=== PATIENT | female | born 1955 | race Caucasian/White ===

== ENCOUNTER → 2017-04-15 | Outpatient (CLI) | payer OTHER ==
[~2017-04-15] MED LIST: ALEV220T14 PO; BEDSIDE COMMODE1 MI1; CHOL1CAP34 PO; CPMMACHINE; FERR240T PO; FLUTI44I INH; LISI-515 PO; MECL-62 PO; MONT10TA2 PO; WALKER WHEELS/F1 MIS
== END ==
LOC: CPRE 09:11
PROVIDERS: ATTEND Orthopaedic Surgery Orthopaedic Surgery of the Spine
DX: Z01.812 Encounter for preprocedural laboratory examination (principal); M17.10 Unilateral primary osteoarthritis, unspecified knee

== ENCOUNTER 2017-04-22 12:10 | Day surgery (SDC) | payer OTHER ==
[~2017-04-22] VITALS: Ht 167.6 cm; Wt 132.8 kg
[~2017-04-22 12:10] MED LIST changes: -BEDSIDE COMMODE1 MI1; -CPMMACHINE; -MECL-62 PO; -WALKER WHEELS/F1 MIS
[2017-04-22] MEDS ORDERED: LACTATED RINGER'S 1000 ML IV PRN (12:30)
[2017-04-22] MEDS ORDERED: INSULIN HUMAN REGULAR 1,000 UNITS/10 ML VIAL SQ PRN (12:30)
[2017-04-22] MEDS ORDERED: VANCOMYCIN 1000 MG/NS 250 ML (for <70 kg) IV SCH ×2 (12:30)
[2017-04-22] MEDS ORDERED: SODIUM CHLORID 0.9% 500 ML IV PRN (12:30)
[2017-04-22] MEDS ORDERED: CHLORHEXIDINE GLUCONATE 4% SOLN 120 ML BTL TOPICAL SCH (12:30)
[2017-04-22] MEDS ORDERED: METOPROLOL TARTRATE 25 MG TAB PO PRN (12:30)
[2017-04-22] MEDS ORDERED: CHLORHEXIDINE GLUCONATE 2 % 1 PACK (2 CLOTHS) TOPICAL PRN (12:30)
[2017-04-22] MEDS ORDERED: POVIDONE IODINE 5% (ANTISEPSIS KIT) 4 APPLICATIONS EACH NARE PRN (12:30)
[2017-04-22] MEDS ORDERED: ROPIVACAINE PERI-ARTICULAR INJECTION. P-ARTICULR SCH ×5 (13:00)
[2017-04-22] MEDS ORDERED: GENTAMICIN SULFATE 80 MG/2 ML VIAL ONE ×2 (13:01)
[2017-04-22 13:14] VITALS: BP 121/79; PULSE 82; RESP 14; TEMP 97; O2SAT 94
== END 2017-04-22 13:50 | disposition home or self-care (01) ==
LOC: HSDC 12:10 → HSDI 12:10 → UNDOADMIN 12:10 → UNDODISIN 13:50 → HSDC 13:50 → EDSTATUS 14:30
PROVIDERS: ATTEND Orthopaedic Surgery Orthopaedic Surgery of the Spine
DX: Z53.09 Procedure and treatment not carried out because of other contraindication (principal)
CPT/HCPCS: 99211; G0463; J1580

== ENCOUNTER 2017-04-24 15:22 | Inpatient (IN) | payer OTHER ==
[~2017-04-24] VITALS: Ht 167.6 cm; Wt 136.0 kg
[2017-05-13] MEDS ORDERED: DEXAMETHASONE SOD PHOS PF 10 MG/ML VIAL IV ONE (08:33)
[2017-05-13] MEDS ORDERED: BUPIVACAINE HCL PF 0.5% 30 ML VIAL NERV BLOCK ONE (08:33)
[2017-05-13] MEDS ORDERED: NEOSTIGMINE 3 MG/3 ML SYR IV ONE (09:22)
[2017-05-13] MEDS ORDERED: PROPOFOL 200 MG/20 ML AMP IV ONE (09:22)
[2017-05-13] MEDS ORDERED: LACTATED RINGER'S 1000 ML INJ 1,000 ML IV ONE (09:22)
[2017-05-13] MEDS ORDERED: ONDANSETRON HCL 4 MG/2 ML VIAL IV PUSH ONE (09:22)
[2017-05-13] MEDS ORDERED: SODIUM CHLOR 0.9% 250 ML INJ 250 ML ONE (11:52)
[2017-05-13] MEDS ORDERED: VANCOMYCIN HCL 1000 MG VIAL ONE (11:53)
[2017-05-13] MEDS ORDERED: ACETAMINOPHEN 1000 MG/100 ML 100 ML IV ONE (13:23)
[2017-05-13] MEDS ORDERED: MIDAZOLAM HCL 2 MG/2 ML VIAL ONE (13:24)
[2017-05-13] MEDS ORDERED: FAMOTIDINE 20 MG/2 ML VIAL ONE (13:24)
[2017-05-13] MEDS ORDERED: ceFAZolin 2 GM PREMIX 50 ML ONE (13:30)
[2017-05-13] MEDS ORDERED: ROPIVACAINE PERI-ARTICULAR INJECTION. P-ARTICULR SCH ×5 (13:30)
[2017-05-13] MEDS ORDERED: INSULIN HUMAN REGULAR 1,000 UNITS/10 ML VIAL SQ PRN (13:45)
[2017-05-13] MEDS ORDERED: VANCOMYCIN 1000 MG/NS 250 ML (for <70 kg) IV SCH ×2 (13:45)
[2017-05-13] MEDS ORDERED: POVIDONE IODINE 5% (ANTISEPSIS KIT) 4 APPLICATIONS EACH NARE PRN (13:45)
[2017-05-13] MEDS ORDERED: LACTATED RINGER'S 1000 ML IV PRN (13:45)
[2017-05-13] MEDS ORDERED: SODIUM CHLORID 0.9% 500 ML IV PRN (13:45)
[2017-05-13] MEDS ORDERED: CHLORHEXIDINE GLUCONATE 4% SOLN 120 ML BTL TOPICAL SCH (13:45)
[2017-05-13] MEDS ORDERED: CHLORHEXIDINE GLUCONATE 2 % 1 PACK (2 CLOTHS) TOPICAL PRN (13:45)
[2017-05-13] MEDS ORDERED: METOPROLOL TARTRATE 25 MG TAB PO PRN (13:45)
[2017-05-13] MEDS ORDERED: GENTAMICIN SULFATE 80 MG/2 ML VIAL IRRIGATION ONE ×2 (15:34→15:43)
[2017-05-13] MEDS ORDERED: CPMMACHINE (16:44)
[2017-05-13] MEDS ORDERED: BEDSIDE COMMODE1 MI1 (16:44)
[2017-05-13] MEDS ORDERED: WALKER WHEELS/F1 MIS (16:44)
[2017-05-13] MEDS ORDERED: FLUTICASONE PROPIONATE 44 MCG/ACT 10.6 GM INHALER INH PRN (16:45)
[2017-05-13] MEDS ORDERED: ALUMINUM/MAGNESIUM/SIMETH 30 ML CUP PO PRN (16:45)
[2017-05-13] MEDS ORDERED: Post-op Orders (for Pharmacy) MISC XX ONE (16:45)
[2017-05-13] MEDS ORDERED: SODIUM CHLORIDE 0.9% FLUSH 5 ML FLUSH IVF PRN (16:45)
[2017-05-13] MEDS ORDERED: MORPHINE SULFATE 8 MG/ML INJ IM PRN (16:45)
[2017-05-13] MEDS ORDERED: ZOLPIDEM TARTRATE 5 MG TAB PO PRN (16:45)
--- NOTE | 2017-05-13 16:46 | HHI.FF ---
Face to Face Verification Diagnosis: (1) Osteoarthritis of right knee Physical Therapy Gait training, Transfer training, bed to chair Knee: Total knee, Protocol: Right, Full weight bearing Canvas Knee Splint: Remove only with PT, Other (at night while sleeping x 4 weeks ) Right LE Weight Bearing: WB as tolerated Left LE Weight Bearing: WB as tolerated Nursing RN: 3 days/week x 2 weeks Nursing: Dressing changes (clean incision with alcohol and apply dry sterile dressing ) Additional Instructions Pt/INR q Saturday and , call/text results to Jennifer [phone] Goal INR 1.5-1.8 I have seen patient Bel Morales on 05/13/17. My clinical findings support the need for the requested home health care services because: Deconditioned w/ increased weakness I certify that my clinical findings support that this patient is homebound because: Post-op weakness Jan Sloan MD May 13, 2017 16:46
[2017-05-13] MEDS ORDERED: DO NOT ADM ANY ANTICOAGULANT DRUGS PRN (16:54)
[2017-05-13] MEDS ORDERED: MORPHINE SULFATE 4 MG/ML INJ ONE (17:00)
[2017-05-13] MEDS ORDERED: *morphine SULFATE 8 MG/ML PERIprocedure ONLY ONE ×2 (17:07→17:30)
--- NOTE | 2017-05-13 17:51 | RADRPT ---
EXAM DATE/TIME: 05/13/2017 17:08 [facility] COMPARISON: No previous studies available for comparison. INDICATIONS : Post operative right knee. MEDICAL HISTORY : None. SURGICAL HISTORY : None. ENCOUNTER: Initial ACUITY: 1 day PAIN SCORE: Non-responsive. LOCATION: Right knee. FINDINGS: AP and lateral views of the knee following arthroplasty reveals a prosthesis in anatomic alignment. F racture is not appreciated. Surgical drain is evident CONCLUSION: Status post total knee arthroplasty. Tamir Menendez MD FACR Board Certified Radiologist. This report was verified electronically.
[2017-05-13] MEDS: LACTATED RINGER'S 1000 ML INJ 1,000 ML IV SCH (18:00)
[2017-05-13] MEDS: ACETAMINOPHEN/HYDROcodone 325 MG/7.5 MG TAB PO PRN (20:18)
[2017-05-13 20:58] VITALS: BP 126/70; PULSE 85; RESP 16; TEMP 96; O2SAT 94
[2017-05-13] MEDS ORDERED: FERROUS GLUCONATE PO SCH ×2 (21:00)
[2017-05-13] MEDS: SODIUM CHLORIDE 0.9% FLUSH 5 ML FLUSH IVF SCH (21:03)
[2017-05-14] VITALS (9 sets, daily range): BP systolic 80–123; BP diastolic 57–73; PULSE 69–85; RESP 16–19; TEMP 96.2–96.8; O2SAT 94–98
[2017-05-14] MEDS: ACETAMINOPHEN/HYDROcodone 325 MG/7.5 MG TAB PO PRN ×5 (00:53→18:07)
[2017-05-14] MEDS: LACTATED RINGER'S 1000 ML INJ 1,000 ML IV SCH (03:58)
[2017-05-14 06:17] LABS: PROTHROMBIN TIME - PATIENT 11.5 SEC (9.8-11.6)
[2017-05-14] MEDS: ONDANSETRON HCL 4 MG/2 ML VIAL IVP PRN (07:23)
[2017-05-14] MEDS: LISINOPRIL 20 MG TAB PO SCH (08:13)
--- NOTE | 2017-05-14 08:59 | PD.CONS ---
HPI Service [facility] Hospitalists Consult Requested By Dr. Jan Sloan Reason for Consult Medical management Primary Care Physician Dr. Han Bryant Diagnoses: History of Present Illness Mrs. Morales is a pleasant 61 y/o female with HTN, asthma, osteoarthritis and vitamin D deficiency. Pt was admitted to [facility] on 05/13/17 for right total knee arthroplasty with Dr. Sloan. The [facility] Hospitalist team was consulted to help with managing the patients chronic medical issues. She is seen post- operatively. Her vitals have been stable. Pts pain is fairly well controlled. Denies any chest pain, SOB, palpitations, abd pain, vomiting, or diarrhea. pt rpeorts that she had some dizziness this morning after taking some pain medication. Otherwise no complaints. Pt is planned for discharge home with [facility] tomorrow. Review of Systems Constitutional: DENIES: Fever, Chills Eyes: DENIES: Vision loss Ears, nose, mouth, throat: DENIES: Hearing loss Respiratory: DENIES: Cough, Shortness of breath Cardiovascular: DENIES: Chest pain, Palpitations Gastrointestinal: DENIES: Abdominal pain, Diarrhea, Vomiting Genitourinary: DENIES: Hematuria Musculoskeletal: COMPLAINS OF: Joint pain Integumentary: DENIES: Rash Neurologic: DENIES: Headache Psychiatric: DENIES: Confusion Past Family Social History Past Medical History HTN Hyperlipidemia Asthma Obesity Recurrent ventral hernia Vertigo Vitamin D Deficiency 2D echo (12/19/16): - Mild concentric left ventricular hypertrophy - Estimated EF 60-65% - RV is mildly dilated - [id number] mitral valve regurgitation - Estimated PA pressure is 19.9mmHg Past Surgical History Ovarian cystectomy Reported Medications Ferrous Gluconate 480 Mg PO HS Flovent Hfa 10.6 GM Inh (Fluticasone Propionate) 44 Mcg/Act Inh 2 Puff INH BID PRN Use daily at the same time. Vitamin D3 50,000 Units PO Q7D Lisinopril 20 Mg PO DAILY --Advair Diskus 250-50Mcg/Dose i Puff Q12H --Albuterol Nebulizer Q6H PRN Allergies: Coded Allergies: penicillin G (Unverified Allergy, Severe, 05/13/17) meloxicam (Verified Allergy, Unknown, 05/13/17) Family History Father with hx of COPD, CHF, Mother with hx of A. 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 She is Physical Exam Vital Signs Vital Signs Date Time Temp Pulse Resp B/P (MAP) Pulse Ox O2 Delivery O2 Flow Rate FiO2 05/14/17 08:00 96.2 80 19 123/73 (90) 95 05/14/17 04:35 96.2 75 19 101/57 (72) 94 05/14/17 00:40 96.4 85 18 112/69 (83) 96 05/13/17 20:58 96.0 85 16 126/70 (88) 94 05/13/17 20:15 97.9 86 15 109/61 (77) 93 Nasal Cannula 3 05/13/17 19:00 81 15 106/59 (75) 95 Nasal Cannula 3 05/13/17 18:30 82 15 106/57 (73) 94 Nasal Cannula 3 05/13/17 18:15 84 15 110/57 (74) 96 Nasal Cannula 3 05/13/17 18:00 86 15 110/58 (75) 96 Nasal Cannula 3 05/13/17 17:45 86 14 107/58 (74) 93 Nasal Cannula 3 05/13/17 17:30 87 15 111/64 (80) 94 Nasal Cannula 3 05/13/17 17:15 85 14 111/62 (78) 94 Nasal Cannula 3 05/13/17 17:00 86 14 117/60 (79) 94 Nasal Cannula 3 05/13/17 16:51 98.2 89 16 116/68 (84) 94 Nasal Cannula 3 05/13/17 12:34 98.5 86 18 126/80 (95) 95 Physical Exam GENERAL: This is a well-nourished, well-developed patient, in no apparent distress. HEENT: Atraumatic. Normocephalic. No temporal or scalp tenderness. No scleral icterus. Airway patent. NECK: Trachea midline, supple, nontender. CARDIO: Regular. RESP: CTA bilaterally. No wheezes, rales, or rhonchi. ABD: +BS, soft, non-tender, nondistended. EXT: Right knee bandages are c/d/i. NEURO: Awake and alert. Motor and sensory grossly within normal limits. Normal speech. Laboratory Laboratory Tests Test 05/14/17 05:46 Prothrombin Time 11.5 Prothromb Time International Ratio 1.0 Imaging Last Impressions Knee X-Ray 05/13/17 1638 Signed Impressions: Service Date/Time: Saturday, May 13, 2017 17:08 - CONCLUSION: Status post total knee arthroplasty. Tamir Menendez MD Assessment and Plan Problem List: (1) Osteoarthritis of right knee ICD Codes: M17.11 - Unilateral primary osteoarthritis, right knee Status: Chronic Plan: - Pt s/p right total knee arthroplasty on 05/13/[address] Jan Sloan - Post-op pain control per Ortho - IS - PT daily - Constipation precautions - Supportive care - DVT prophylaxis with Coumadin ordered by surgery (2) HTN (hypertension), benign ICD Codes: I10 - Essential (primary) hypertension Status: Chronic Plan: - BP has been stable - Home med resumed - Monitor (3) Asthma ICD Codes: J45.909 - Unspecified asthma, uncomplicated Status: Chronic Plan: - Pt takes Advair twice daily, Albuterol nebs PRN - Duoneb PRN Assessment and Plan Patient examined. Assessment and plan formulated with Alyssa Pratt PA-C. I agree with the above. Problem Qualifiers (1) Osteoarthritis of right knee: Qualified Codes: M17.11 - Unilateral primary osteoarthritis, right knee (2) Asthma: Alyssa Pratt May 14, 2017 08:59 Amrit Bullard DO May 16, 2017 01:36
[2017-05-14] MEDS: SODIUM CHLORIDE 0.9% FLUSH 5 ML FLUSH IVF SCH ×2 (09:00→21:00)
[2017-05-14] MEDS ORDERED: RESP: ALBUTEROL 2.5 MG/IPRATROPIUM 0.5 MG NEB (PRN) NEB (09:15)
[2017-05-14] MEDS ORDERED: WARFARIN SOD 10 MG TAB PO ONE (16:00)
[2017-05-14] MEDS ORDERED: WARFARIN SOD 5 MG TAB PO SCH (16:00)
[2017-05-14] MEDS ORDERED: BENZOCAINE-MENTHOL (SUGAR FREE) 15 MG-3.6 MG LOZENGE BUCCAL PRN (16:15)
--- NOTE | 2017-05-14 17:24 | MP ---
cc: BETO JONES MD GILLESPY, ALBERT DATE OF SURGERY 05/13/17 PREOPERATIVE DIAGNOSIS 1. Right knee severe tricompartmental osteoarthritis, genu varus deformity. 2. Morbid obesity. BMI is 46.7. POSTOPERATIVE DIAGNOSIS 1. Right knee severe tricompartmental osteoarthritis, genu varus deformity. 2. Morbid obesity. BMI is 46.7. PROCEDURE Right total knee arthroplasty - cemented Biomet vanguard SURGEON Lois Sloan MD WHEELCHAIR DRIVER Maximilian Brito, MONSTER SPECIMENS None ESTIMATED BLOOD LOSS 50 mL COMPLICATIONS None ANESTHESIA General, regional, local DRAINS Two. TOURNIQUET TIME 59 minutes at 300mmHg condition stable CONDITION Stable. PLAN OF ACTIVITY Per orders. PROCEDURE IN DETAIL My information services assistant Jennifer Brito, PAC, was present for entire surgical case. She was medically necessary for entire case because of the complexity of the case and to facilitate the performance of the procedure. The DATACAP DEVELOPER at the back table was not a skill set for this case to manipulate the instruments e.g. multiple different soft tissue tractors, trial implants and permanent implants including bone cement. The patient was brought to the operating room and had satisfactory anesthesia by Dr. Dr. Rodrick Phelps, Department of Anesthesia. The right lower extremity was prepped and draped in usual sterile manner. A considerable time and effort was made in preparing the patient for surgery and during the surgery because of her morbid obesity and very large thigh from her morbid obesity. A four inch tourniquet needed to be used for the surgical case. The right lower extremity was prepped and draped in usual sterile manner. The extremity was exsanguinated by elevation and the tourniquet was inflated to 300 mmHg. An anterior medial exposure to the knee was made. Paramedian capsulotomy was performed. The patella was dislocated laterally. The patient was found to have severe tricompartmental osteoarthritis. The prepatellar fat pad was excised. The remaining portion of the medial and lateral meniscus were removed. Anterior cruciate ligament was removed. The posterior cruciate ligament was preserved. Using Biomet vanguard total knee arthroplasty system, IM guide was used for the distal femur with a 5 degree valgus cut. This was to accept a 67.5 mm tibial component with appropriate rotation of 3-5 degrees of external rotation. Extramedullary guide was used for the tibia to accept a 71 mm tibial prosthesis. Trial reduction was made with a 10 mm insert. The patient had excellent balance with both flexion/extension. This was after appropriate soft tissue releases were performed. Undersurface of the patella was performed to accept a 31-mm three-pronged patellar prosthesis. All trial components were removed. Preparation for cementing was made. The knee was irrigated with copious amounts of sterile saline. The wound itself was dry. The knee was injected with 100 mL of local anesthesia provided by the department pharmacy. The wound was prepared for cementing. Two packages of Palicos bone cement was used. High viscosity Palicos bone cement was used. First, the tibial component was cemented followed by the femoral component and then the patella component. All excess bone cement was removed. Bone cement was allowed to harden for 13 minutes. A 10 x 71 mm tibial prosthesis was assembled onto the tibial tray. Appropriate locking mechanism was performed. The tourniquet was deflated. All bleeders were coagulated. Wound was irrigated with 4000 mL of sterile saline antibiotic solution. A lateral retinacular release was performed. The patella was found to groove well within patellofemoral compartment using a "no thumbs technique". Two 1/8" Hemovac drains were hooked up to automatic type system. The knee was closed in layers. The capsule and extensor mechanism __ using multiple interrupted #2 Tycron sutures. Subcutaneous layers with 0 Vicryl and 2-0 Vicryl. Skin was approximated with skin trey. Sterile dressings were applied. The patient tolerated the procedure well and went to recovery room in stable and satisfactory condition. MD SARA Daniel/ /4:38 PM /4:57 PM
[2017-05-15] VITALS: BP 109/69; PULSE 72; RESP 17; TEMP 96.7; O2SAT 95
[2017-05-15] MEDS: ACETAMINOPHEN/HYDROcodone 325 MG/7.5 MG TAB PO PRN ×4 (00:19→13:09)
[2017-05-15 04:00] VITALS: BP 100/57; PULSE 80; RESP 17; TEMP 97.3; O2SAT 96
[2017-05-15] MEDS: LACTATED RINGER'S 1000 ML INJ 1,000 ML IV SCH (07:30)
[2017-05-15] MEDS: LISINOPRIL 20 MG TAB PO SCH (07:53)
--- NOTE | 2017-05-15 07:56 | PD.ORT.PN ---
Subjective Subjective Remarks pt doing better, does have post op knee pain denies any SOB, chest pain Objective Vitals Vital Signs Date Time Temp Pulse Resp B/P (MAP) Pulse Ox O2 Delivery O2 Flow Rate FiO2 05/15/17 04:00 97.3 80 17 100/57 (71) 96 05/15/17 00:00 96.7 72 17 109/69 (82) 95 05/14/17 22:42 96 Nasal Cannula 05/14/17 19:00 96.8 69 16 112/64 (80) 95 05/14/17 16:00 96.6 81 18 100/61 (74) 97 05/14/17 12:38 105/71 (82) 05/14/17 12:00 96.8 82 18 80/60 (67) 95 05/14/17 11:16 98 21 05/14/17 08:00 96.2 80 19 123/73 (90) 95 I/O 05/14/17 05/14/17 05/14/17 05/15/17 05/15/17 05/15/17 07:00 15:00 23:00 07:00 15:00 23:00 Intake Total 1077 ml 820 ml 480 ml 480 ml Output Total 700 ml 0 ml Balance 377 ml 820 ml 480 ml 480 ml Intake Oral 480 ml 720 ml 480 ml 480 ml IV Total 597 ml 100 ml Output Urine Total 700 ml Drainage Total 0 ml 0 ml Bladder Scan Volume Amount 498 ml # Voids 3 3 5 # Bowel Movements 0 0 Objective Remarks sitting up in chair right knee dressing dry and intact +NVI no calf tenderness Assessment & Plan Assessment and Plan POD # 2 s/p R TKA low dose coumadin for dvt prop PT-WBAT anticipate discharge today after total joint class orthopedically stable going home with [facility] Jennifer Brito May 15, 2017 07:56
[2017-05-15 08:00] VITALS: BP 121/65; PULSE 84; RESP 17; TEMP 96.5; O2SAT 96
[2017-05-15] MEDS: SODIUM CHLORIDE 0.9% FLUSH 5 ML FLUSH IVF SCH (09:00)
[2017-05-15] MEDS: ONDANSETRON HCL 4 MG/2 ML VIAL IVP PRN (09:33)
[2017-05-15 10:46] LABS: PROTHROMBIN TIME - PATIENT 11.4 SEC (9.8-11.6)
[2017-05-15 10:53] LABS: REVIEW FLAG FINAL
[2017-05-15 12:00] VITALS: BP 114/62; PULSE 72; RESP 18; TEMP 95.9; O2SAT 95
[2017-05-15] MEDS ORDERED: MAGNESIUM HYDROXIDE SUSP 30 ML CUP PO SCH (14:00)
[2017-05-15] MEDS ORDERED: MECL-62 PO (14:22)
[2017-05-15] MEDS ORDERED: MECLIZINE HCL 25 MG TAB PO PRN (14:30)
[2017-05-15] MEDS ORDERED: WARFARIN SOD 5 MG TAB PO SCH (16:00)
[2017-05-15] MEDS ORDERED: WARFARIN SOD 5 MG TAB PO ONE (16:00)
[2017-05-15] MEDS ORDERED: WARFARIN SOD 10 MG TAB PO ONE (16:00)
[2017-05-16] MEDS ORDERED: BISACODYL EC 5 MG TABEC PO SCH (09:00)
[2017-05-16] MEDS ORDERED: WARFARIN SOD 5 MG TAB PO SCH (16:00)
== END 2017-05-15 16:55 | DRG 470 ==
LOC: HSDI 05-13 11:17 → N06B 05-13 20:59
PROVIDERS: ADMIT Orthopaedic Surgery Orthopaedic Surgery of the Spine; ATTEND Orthopaedic Surgery Orthopaedic Surgery of the Spine
PROC: 0SRC0J9 Replacement of Right Knee Joint with Synthetic Substitute, Cemented, Open Approach (ICD-10-PCS; principal; 2017-05-13 14:11)
DX: M17.11 Unilateral primary osteoarthritis, right knee (principal); Z68.42 Body mass index [BMI] 45.0-49.9, adult; I10 Essential (primary) hypertension; E66.01 Morbid (severe) obesity due to excess calories; J45.909 Unspecified asthma, uncomplicated; E55.9 Vitamin D deficiency, unspecified; E78.5 Hyperlipidemia, unspecified; I34.0 Nonrheumatic mitral (valve) insufficiency
CPT/HCPCS: 73560; 76937; 85014; 85018; 85610; 86850; 86890; 86891; 86900; 86901; 86920; 94150; C1776; J0131; J0171; J0690; J0735; J1100; J1580; J1885; J2250; J2270; J2405; J2710; J2795; J3010; J3370; J7050; J7120; L1830

== ENCOUNTER → 2017-07-15 | Day surgery (SDC) | payer OTHER ==
[~2017-07-15] VITALS: Ht 167.6 cm; Wt 132.0 kg
[~2017-07-15] MED LIST changes: +ACETAMINOPHEN/HYDROcodone 325 MG/10 MG TAB PO PRN; -ALEV220T14 PO; +BEDSIDE COMMODE1 MI1; +CHLORHEXIDINE GLUCONATE 2 % 1 PACK (2 CLOTHS) TOPICAL PRN; +CHLORHEXIDINE GLUCONATE 4% SOLN 120 ML BTL TOPICAL SCH; +CPMMACHINE; +DEXAMETHASONE SOD PHOS PF 10 MG/ML VIAL ONE; +DO NOT ADM ANY ANTICOAGULANT DRUGS PRN; +HYDR-3535 PO; +INSULIN HUMAN REGULAR 1,000 UNITS/10 ML VIAL SQ PRN; +KETAMINE HCL 500 MG/5 ML VIAL ONE; +KETOROLAC TROMETHAMINE 30 MG/ML (IVP) VIAL IV PUSH ONE; +LACTATED RINGER'S 1000 ML IV PRN; +LIDOCAINE HCL 1% PF 5 ML AMPULE OTHER ONE; +MAGN250T11 PO; +MECL-62 PO; +METOPROLOL TARTRATE 25 MG TAB PO PRN; +MIDAZOLAM HCL 2 MG/2 ML VIAL IV ONE; -MONT10TA2 PO; +MORP1CAP PO; +MORPHINE SULFATE 4 MG/ML INJ IV ONE; +ONDANSETRON HCL 4 MG/2 ML VIAL IV PUSH ONE; +POVIDONE IODINE 5% (ANTISEPSIS KIT) 4 APPLICATIONS EACH NARE PRN; +PROPOFOL 200 MG/20 ML AMP IV ONE; +ROPIVACAINE 0.5% PF INJ 30 ML VIAL ONE; +SODIUM CHLORID 0.9% 500 ML IV PRN; +WALKER WHEELS/F1 MIS
--- NOTE | 2017-07-15 13:10 | RADRPT ---
EXAM DATE/TIME: 07/15/2017 12:38 [facility] COMPARISON: KNEE RIGHT LTD (1 OR 2 VWS), May 13, 2017, 17:08. INDICATIONS : Post-op right knee manipulation. MEDICAL HISTORY : None. SURGICAL HISTORY : None. ENCOUNTER: Initial ACUITY: 1 day PAIN SCORE: Non-responsive. LOCATION: Right Knee. FINDINGS: Anatomic alignment following manipulation. CONCLUSION: Anatomic alignment. Tamir Menendez MD FACR on July 15, 2017 at 13:08 Board Certified Radiologist. This report was verified electronically.
--- NOTE | 2017-07-15 13:27 | MP ---
cc: MARYANN HONEYCUTT M.D., JOHN, MD DATE OF SURGERY 07/15/2017 PREOPERATIVE DIAGNOSES 1. Right knee stiffness (arthrogryposis). 2. Status post right total knee arthroplasty, May 13, 2017. 3. Morbid obesity. POSTOPERATIVE DIAGNOSES 1. Right knee stiffness (arthrogryposis). 2. Status post right total knee arthroplasty, May 13, 2017. 3. Morbid obesity. PROCEDURE Right knee manipulation under anesthesia. SURGEON Sarah Honeycutt MD ASSESSMENT Staff SPECIMENS None. ESTIMATED BLOOD LOSS None. COMPLICATIONS None. ANESTHESIA General. DRAINS None. TOURNIQUET TIME None. CONDITION Stable. PLAN OF ACTIVITY Per orders. PROCEDURE PERFORMED The patient was brought in the operating room, had satisfactory general anesthesia by the Department of Anesthesia. Following anesthesia, the patient underwent manipulation of the right knee. This was with general and persistent constant flexion of the knee. Preoperative range of motion was 0 to 45 degrees of flexion. Lysis of adhesions with manipulation was performed and with measurement by goniometer the patient had range of motion from 0 to 115 degrees of flexion. X-ray with fluoroscopy of the right knee AP and lateral following manipulation showed satisfactory total knee arthroplasty with no evidence of any bony injury. The patient tolerated the procedure well and arrived in the recovery room in stable and satisfactory condition. Maryann Honeycutt MD AG/SSB /12:55 PM /1:13 PM
--- NOTE | 2017-07-15 13:27 | MP ---
cc: MARYANN HONEYCUTT M.D., JOHN, MD DATE OF SURGERY 07/15/2017 PREOPERATIVE DIAGNOSES 1. Right knee stiffness (arthrogryposis). 2. Status post right total knee arthroplasty, May 13, 2017. 3. Morbid obesity. POSTOPERATIVE DIAGNOSES 1. Right knee stiffness (arthrogryposis). 2. Status post right total knee arthroplasty, May 13, 2017. 3. Morbid obesity. PROCEDURE Right knee manipulation under anesthesia. SURGEON Sarah Honeycutt MD ASSESSMENT Staff SPECIMENS None. ESTIMATED BLOOD LOSS None. COMPLICATIONS None. ANESTHESIA General. DRAINS None. TOURNIQUET TIME None. CONDITION Stable. PLAN OF ACTIVITY Per orders. PROCEDURE PERFORMED The patient was brought in the operating room, had satisfactory general anesthesia by the Department of Anesthesia. Following anesthesia, the patient underwent manipulation of the right knee. This was with general and persistent constant flexion of the knee. Preoperative range of motion was 0 to 45 degrees of flexion. Lysis of adhesions with manipulation was performed and with measurement by goniometer the patient had range of motion from 0 to 115 degrees of flexion. X-ray with fluoroscopy of the right knee AP and lateral following manipulation showed satisfactory total knee arthroplasty with no evidence of any bony injury. The patient tolerated the procedure well and arrived in the recovery room in stable and satisfactory condition. aMryann Honeycutt MD AG/SSB /12:55 PM /1:13 PM
[2017-07-15 15:00] VITALS: BP 131/82; PULSE 64; RESP 18; TEMP 98; O2SAT 94
--- NOTE | 2017-07-16 17:51 | EKG ---
Date Performed: 07/15/2017 Time Performed: 10:58:47 PTAGE: 62 years EKG: SINUS BRADYCARDIA BORDERLINE ECG NO PREVIOUS TRACING DOCTOR: Lynne Ugarte Interpretating Date/Time 07/16/2017 17:47:55
--- NOTE | 2017-07-16 17:51 | EKG ---
Date Performed: 07/15/2017 Time Performed: 10:58:47 PTAGE: 62 years EKG: SINUS BRADYCARDIA BORDERLINE ECG NO PREVIOUS TRACING DOCTOR: Lynne Ugarte Interpretating Date/Time 07/16/2017 17:47:55
--- NOTE | 2017-07-16 17:51 | EKG ---
Date Performed: 07/15/2017 Time Performed: 10:58:47 PTAGE: 62 years EKG: SINUS BRADYCARDIA BORDERLINE ECG NO PREVIOUS TRACING DOCTOR: Lynne Ugarte Interpretating Date/Time 07/16/2017 17:47:55
== END | disposition home or self-care (01) ==
LOC: HSDC 10:09
PROVIDERS: ATTEND Orthopaedic Surgery Orthopaedic Surgery of the Spine
DX: M24.661 Ankylosis, right knee (principal); M17.0 Bilateral primary osteoarthritis of knee; Z96.651 Presence of right artificial knee joint; M81.0 Age-related osteoporosis without current pathological fracture; I10 Essential (primary) hypertension; J45.909 Unspecified asthma, uncomplicated; E66.01 Morbid (severe) obesity due to excess calories; Z01.810 Encounter for preprocedural cardiovascular examination
CPT/HCPCS: 01380; 27570; 73560; 76000; 93005; J1100; J1885; J2250; J2270; J2405; J2795; J3010; J7120